=== PATIENT | female | born 1990 | race African-American/Black ===

== ENCOUNTER → 2018-10-18 | Outpatient (CLI) | payer OTHER ==
--- NOTE | 2018-10-18 21:26 | REP ---
REASON: Cough and congestion. PRIORS: None. There is minimal right CP angle blunting and minimal patchy right lower lobe opacities. Lungs brower are otherwise clear. Left CP angle is sharp. The heart is not enlarged. The osseous structures are normal. IMPRESSION: Suspect early right lower lobe pneumonia with a small right pleural effusion. Electronically Signed by Jose Jacinto DO 10/19/2018 10:19 A
== END ==
LOC: M LRY 19:14
PROVIDERS: ATTEND Physician Assistant
DX: R91.8 Other nonspecific abnormal finding of lung field (principal); R05 Cough; R50.9 Fever, unspecified
CPT/HCPCS: 71046; 81025; G0463